=== PATIENT | male | born 1990 | race African-American/Black ===

== ENCOUNTER 2017-06-23 03:48 | Emergency (ER) | payer OTHER ==
[2017-06-23 06:00] VITALS: BP 128/82
== END 2017-06-23 05:25 | disposition home or self-care (01) ==
LOC: ED 03:48
DX: S60.211A Contusion of right wrist, initial encounter (principal); X58.XXXA Exposure to other specified factors, initial encounter; Y99.8 Other external cause status; Y93.89 Activity, other specified; Y92.89 Other specified places as the place of occurrence of the external cause
CPT/HCPCS: Q0092